=== PATIENT | male | born 1950 | race Caucasian/White ===

== ENCOUNTER 2021-05-21 17:23 | Emergency (ER) | payer MEDICARE ==
[~2021-05-21] VITALS: Ht 182.9 cm; Wt 109.1 kg
[2021-05-21 17:24] VITALS: TEMP 98.5
[2021-05-21 17:37] LABS: BASO # 0.1 (0.0-0.2); BASO % 0.4 % (0.0-2.0); EOS % 0.2 % (0-4.0); GRAN # 12.3 (1.4-6.5); GRAN % 88.7 % (42.2-75.2); HEMATOCRIT 44.8 % (42.0-52.0); LYMPH # 0.6 (1.2-3.4); LYMPH % 4.1 % (20.0-51.0); MEAN CELL VOLUME 89 fl (80.0-100.0); MEAN CORPUSCULAR HEMOGLOBIN 32 pg (27.0-31.0); MEAN CORPUSCULAR HGB CONC 36 g/dl (33.0-37.0); MEAN PLATELET VOLUME 10.6 fl (7.4-10.4); MONO # 0.9 (0.1-0.6); MONO % 6.2 % (1.7-9.3); PLATELET COUNT 216 K/mm3 (130-400); RED BLOOD COUNT 5.02 M/mm3 (4.20-5.60); REDCELL DISTRIBUTION WIDTH-CV 12.5 % (11.5-14.5)
[2021-05-21 17:50] LABS: CREATININE, serum 1.41 mg/dL (0.72-1.25); POTASSIUM 4.4 mmol/L (3.5-4.5)
[2021-05-21 18:40] VITALS: BP 155/96; PULSE 89
== END 2021-05-21 18:41 ==
LOC: COL.ER 17:23
PROVIDERS: Emergency Medicine
DX: N17.9 Acute kidney failure, unspecified (principal); E86.0 Dehydration; E11.9 Type 2 diabetes mellitus without complications
CPT/HCPCS: J7030